=== PATIENT | female | born 1955 | race Caucasian/White ===

== ENCOUNTER 2017-05-29 08:52 | Emergency (ER) | payer BC ==
[2017-05-29] MEDS ORDERED: NS 0.9% 1000 ML* 1,000 ML IV ONE (09:19)
[2017-05-29] MEDS ORDERED: Ondansetron INJ* 2 MG/ML VIAL IV ONE (09:23)
--- NOTE | 2017-05-29 09:23 | ED ---
Influenza-Like Illness - HPI Summary HPI Summary: 61F presents with flu like symptoms for a week. She admits to subjective fevers , fatigue, feeling emotional for past week. She admits to nausea. She denies any vomiting or abdominal pain. She denies any headache, sinus congestion, ear pain, sore throat, cough, chest pain or SOB. She denies any diarrhea or constipation. She denies any dysuria, hematuria, flank pain, urgency, or frequency. She denies any neck stiffness. She states she has tingling in her fingers. She has been taking Tylenol without relief and today switched to ibuprofen due to LFTs being elevated primary told her she is taking too much Tylenol. Previous surgeries is hysterectomy. She denies any recent tick exposures. Her was sick with cold like symptoms but got better unlike her. She was seen by her primary and had lab work done with only abnormality was LFT so was told to stop liptor which stopped today. She was suppose to have lab work done by her primary today but decided because she was feeling worst to come here instead. only medical history is high cholesterol. had TSH checked three days ago and was normal. - History of Current Complaint Chief Complaint: EDFluSymptoms Time Seen by Provider: 05/29/17 09:00 - Allergy/Home Medications Allergies/Adverse Reactions: Allergies Allergy/AdvReac Type Severity Reaction Status Date / Time Clindamycin Allergy Severe Hives Verified 05/29/17 08:58 Penicillins [PCN] Allergy Severe Hives Verified 05/29/17 08:58 PMH/Surg Hx/FS Hx/Imm Hx Infectious Disease History: No Infectious Disease History: Denies: Traveled Outside the [place] in Last 30 Days - Social History Alcohol Use: None Substance Use Type: Reports: None Smoking Status (MU): Never Smoked Tobacco Review of Systems Positive: Fever Negative: Sore Throat, Ear Ache, Nasal Discharge Negative: Chest Pain Negative: Shortness Of Breath, Cough Positive: Nausea. Negative: Abdominal Pain, Vomiting, Diarrhea All Other Systems Reviewed And Are Negative: Yes Physical Exam Triage Information Reviewed: Yes Vital Signs On Initial Exam: Initial Vitals Temp Pulse Resp BP Pulse Ox 97.0 F 75 14 141/70 99 05/29/17 08:54 05/29/17 08:54 05/29/17 08:54 05/29/17 08:54 05/29/17 08:54 Vital Signs Reviewed: Yes Appearance: Positive: Well-Appearing Skin: Positive: Warm, Dry Head/Face: Positive: Normal Head/Face Inspection Eyes: Positive: Normal, EOMI, SAURAV, Conjunctiva Clear ENT: Positive: Normal ENT inspection, Pharynx normal, TMs normal Neck: Positive: Supple, Nontender, No Lymphadenopathy Respiratory/Lung Sounds: Positive: Clear to Auscultation, Breath Sounds Present Cardiovascular: Positive: Normal, RRR Abdomen Description: Positive: Nontender, Soft Bowel Sounds: Positive: Present Musculoskeletal: Positive: Normal Neurological: Positive: Normal Psychiatric: Positive: Other - emotional Diagnostics - Vital Signs Vital Signs Temp Pulse Resp BP Pulse Ox 05/29/17 08:54 97.0 F 75 14 141/70 99 - Laboratory Result Diagrams: 05/29/17 09:34 05/29/17 09:34 Lab Statement: Any lab studies that have been ordered have been reviewed, and results considered in the medical decision making process. Re-Evaluation - Re-Evaluation First Eval Re-Evaluation Time: 10:55 Change: Unchanged Comment: stays she has pain in muscles, states that nausea has returned. Flu Symptom Course/Dx - Course Course Of Treatment: 61F presents with flu like symptoms for a week. She admits to subjective fevers, fatigue, feeling emotional for past week. She admits to nausea. She denies any vomiting or abdominal pain. She denies any headache, sinus congestion, ear pain, sore throat, cough, chest pain or SOB. She denies any diarrhea or constipation. She denies any dysuria, hematuria, flank pain, urgency, or frequency. She denies any neck stiffness. She has been taking Tylenol without relief and today switched to ibuprofen due to LFTs being elevated primary told her she is taking too much Tylenol. Previous surgeries is hysterectomy. She denies any recent tick exposures. Her was sick with cold like symptoms but got better unlike her. She was seen by her primary and had lab work done with only abnormality was LFT so was told to stop liptor which stopped today. on exam is emotional. lungs CTA. abdomen soft nontender. vitals afebrile. labs: u/a shows bacteria+1, trace leuko and squamous cells so likely contaminate. labs wbc 9.5. lactic 1.9. flu neg. electroyltes normal. cpk normal. only abnormailty is ALT is elevated. crp 4.34. ordered lyme but will take couple days to get results. after reevaulation patient states is not feeling any better. spoke with dr byrd and states that everything is fine. dr cook say patient as courtesy and discussed with patient and wants to try some ativan. patient understands and agrees with plan. - Diagnoses Differential Diagnosis/HQI/PQRI: Positive: Influenza, Upper Respiratory Infection, Other - lyme Provider Diagnoses: Fatigue, Nausea Discharge - Discharge Plan Condition: Good Disposition: HOME Prescriptions: ALPRAZolam TAB* [Xanax TAB*] 0.25 mg PO Q8H PRN #12 tab MDD 3 PRN Reason: Anxiety Ondansetron ODT TAB* [Zofran 4 MG Odt TAB*] 4 mg PO Q6H PRN #20 tab.odt PRN Reason: Nausea Referrals: Carito Moss MD [Primary Care Provider] - Additional Instructions: Follow up with primary within 5 days Take zofran every 6 hours for nausea Take xanax every 8 hours for shakiness Return to ED if develop any new or worsening symptoms
[2017-05-29 09:54] LABS: Urine Bacteria 1+ (Absent); Urine Bilirubin Negative (Negative); Urine Glucose Negative (Negative); Urine Nitrite Negative (Negative)
[2017-05-29 09:57] LABS: Hematocrit 43 % (35-47); Hemoglobin 14.9 g/dl (12.0-16.0); Mean Corpuscular HGB Conc 35 g/dl (31-36); Mean Corpuscular Hemoglobin 31 pg (27-31); Mean Corpuscular Volume 90 fL (80-97); Mean Platelet Volume 8 um3 (7.4-10.4); Red Blood Count 4.76 10^6/ul (4.0-5.4); Red Cell Distribution Width 13 % (10.5-15); White Blood Count 9.5 10^3/ul (3.5-10.8)
[2017-05-29 09:59] VITALS: BP 114/71
[2017-05-29 10:09] LABS: Albumin 4.3 g/dL (3.2-5.2); BUN/Creatinine Ratio 14.3 (8-20); Calcium 9.8 mg/dL (8.6-10.3); EGFR African American 97.4 (>60); EGFR Non-African American 75.7 (>60); Globulin 3.5 g/dL (2-4); Magnesium 2.2 mg/dL (1.9-2.7); Potassium 3.9 mmol/L (3.5-5.0); Total Bilirubin 0.6 mg/dL (0.2-1.0); Total Protein 7.8 g/dL (6.4-8.9)
[2017-05-29 12:39] LABS: Urine Bacteria 1+ (Absent); Urine Bilirubin Negative (Negative); Urine Glucose Negative (Negative); Urine Nitrite Negative (Negative)
== END 2017-05-29 12:21 | disposition home or self-care (01) ==
LOC: ED 08:52
DX: R53.83 Other fatigue (principal); R11.0 Nausea
CPT/HCPCS: 36415; 80053; 81003; 81015; 82550; 83605; 83735; 85025; 86141; 86618; 87086; 87502; 96360; 96374; 99283; J2405

== ENCOUNTER 2017-10-09 11:56 | Emergency (ER) | payer BC ==
[2017-10-09] MEDS ORDERED: NS 0.9% 1000 ML* 1,000 ML IV ONE (12:50)
[2017-10-09 13:23] LABS: ABS Basophils 0 10^3/ul (0-0.2); ABS Eosinophils 0.3 10^3/ul (0-0.6); ABS Lymphocytes 0.7 10^3/ul (1.0-4.8); ABS Monocytes 0.3 10^3/ul (0-0.8); ABS Neutrophils 14.6 10^3/ul (1.5-7.7); ABS Nucleated RBC 0 10^3/ul; Eosinophil % 1.9 % (0-6); Hematocrit 46 % (35-47); Hemoglobin 15.6 g/dl (12.0-16.0); Lymphocyte % 4.7 % (25-47); Mean Corpuscular HGB Conc 34 g/dl (31-36); Mean Corpuscular Hemoglobin 31 pg (27-31); Mean Corpuscular Volume 91 fL (80-97); Mean Platelet Volume 8 um3 (7.4-10.4); Nucleated Red Blood Cells % 0.1; Platelet Count 324 10^3/ul (150-450); Red Blood Count 5.07 10^6/ul (4.0-5.4); Red Cell Distribution Width 13 % (10.5-15)
[2017-10-09 13:37] LABS: EGFR Non-African American 58.7 (>60)
[2017-10-09 14:13] LABS: Urine Appearance Clear; Urine Blood Negative (Negative); Urine Color Straw; Urine Ketones Trace (Negative); Urine Protein Negative (Negative); Urine Specific Gravity 1.002 (1.010-1.030); Urine Urobilinogen Negative (Negative)
[2017-10-09 15:36] VITALS: BP 110/59
--- NOTE | 2017-10-16 19:42 | ED ---
Toro Lorenz Rebecca, scribed for Kelvin Celis MD on 10/09/17 at 1241 . Allergic Reaction/Systemic - HPI Summary HPI Summary: Pt is a 61 y/o F who presents to ED c/o diffuse, erythematous hives. Sx began 2 days ago and have been gradually worsening since onset, initially localized and now diffuse throughout the body. Sx aggravated and alleviated by nothing, unchanged by Benadryl which she has been taking every 4 hours. Additionally c/o fatigue, mild throat swelling and fever (100.1 yesterday). Denies SOB, cyanosis , hair loss, CP and abd pain. Prior similar episode when she was taking Penicillin and Clindamycin, but less severely. Is not on any daily prescription medications besides Prednisone 30 mg 1x per day for the last 2 days. PMHx Lyme Disease last fall. - History of Current Complaint Chief Complaint: EDAllergicReaction Hx Obtained From: Patient Onset/Duration: Started days ago - 2 days, Still Present Timing: Constant Severity Currently: None Pain Intensity: 0 Pain Scale Used: 0-10 Numeric Location: Diffuse Character: Hives Aggravating Factor(s): Nothing Alleviating Factor(s): Nothing Associated Signs And Symptoms: Positive: Other: - fatigue, fever. Negative: Abdominal Pain, Chest Pain, Difficulty Breathing - Allergies/Home Medications Allergies/Adverse Reactions: Allergies Allergy/AdvReac Type Severity Reaction Status Date / Time MS Clindamycin [Clindamycin] Allergy Severe Hives Verified 05/29/17 08:58 MS Penicillins [PCN] Allergy Severe Hives Verified 05/29/17 08:58 PMH/Surg Hx/FS Hx/Imm Hx Previously Healthy: No - Lyme Disease Endocrine/Hematology History: Denies: Hx Diabetes Cardiovascular History: Denies: Hx Coronary Artery Disease, Hx Hypertension Infectious Disease History: No Infectious Disease History: Denies: Traveled Outside the [place] in Last 30 Days - Family History Known Family History: Positive: Cardiac Disease - Social History Alcohol Use: None Substance Use Type: Reports: None Smoking Status (MU): Never Smoked Tobacco Review of Systems Positive: Fever, Fatigue Positive: Other - Mild throat swelling Negative: Chest Pain Negative: Shortness Of Breath Negative: Abdominal Pain Positive: Rash - Diffuse erythematous hives, Other - NEGATIVE: cyanosis, hair loss All Other Systems Reviewed And Are Negative: Yes Physical Exam - Summary Physical Exam Summary: Appearance: Well-appearing, Well-nourished Skin: Warm, Dry, diffuse erythematous rash that blanches on pressure, with patchier areas on the arms, confluent on the torso, no vesicles, and no other distinguishing features Eyes: Normal, PERRLA, EOMI, sclera anicteric ENT: Normal Neck: Supple, nontender, no lymphadenopathy Respiratory: Clear to auscultation Cardiovascular: S1, S2, no murmur, no rub, no gallop Abdomen: Soft, nontender, no organomegaly Bowel sounds: Present Musculoskeletal: Normal, Strength/ROM Intact, no edema, pulses symmetrical Neurological: Normal, A&Ox3, cranial nerves II-XII WNL, follows commands, gait not tested, sensation intact to pin and light touch Psychiatric: affect normal, behavior appropriate, dressed appropriately, judgment intact Triage Information Reviewed: Yes Vital Signs On Initial Exam: Initial Vitals Temp Pulse Resp BP Pulse Ox 98.5 F 99 16 119/67 97 10/09/17 12:09 10/09/17 12:09 10/09/17 12:09 10/09/17 12:09 10/09/17 12:09 Vital Signs Reviewed: Yes Diagnostics - Vital Signs Vital Signs Temp Pulse Resp BP Pulse Ox 10/09/17 12:09 98.5 F 99 16 119/67 97 - Laboratory Result Diagrams: 10/09/17 13:11 10/09/17 13:11 Lab Statement: Any lab studies that have been ordered have been reviewed, and results considered in the medical decision making process. Re-Evaluation - Re-Evaluation First Eval Re-Evaluation Time: 15:01 Comment: Discussed all results and D/C plan with the pt. Allergic Reaction Course/Dx - Course Assessment/Plan: Pt is a 61 y/o F who presents to ED c/o diffuse, erythematous hives for 2 days ago, gradually worsening since onset. Sx unchanged by Benadryl which she has been taking every 4 hours. Additionally c/o fatigue, mild throat swelling and fever (100.1 yesterday). Denies SOB, cyanosis, hair loss, CP and abd pain. Prior similar episode when she was taking Penicillin and Clindamycin, but less severely. Is not on any daily prescription medications besides Prednisone 30 mg 1x per day for the last 2 days. PMHx Lyme Disease last fall. Bloodwork and UA were done and the pt received fluids in the ED course. Pt will be D/C to home with Dx of urticaria. Allergies noted. - Diagnoses Provider Diagnoses: Urticaria, possible vasculitis Discharge - Discharge Plan Condition: Fair Disposition: HOME Prescriptions: predniSONE TAB* [Deltasone TAB*] 10 mg PO DAILY 10 Days #100 tab Patient Education Materials: Urticaria (ED) Referrals: Carito Moss MD [Primary Care Provider] - Additional Instructions: see primary MD in the next 72 hours The documentation as recorded by the Toro fontaine Rebecca accurately reflects the service I personally performed and the decisions made by me, Kelvin Celis MD.
== END 2017-10-09 15:36 | disposition home or self-care (01) ==
LOC: ED 11:56
DX: L50.9 Urticaria, unspecified (principal); R53.83 Other fatigue; R50.9 Fever, unspecified; R21 Rash and other nonspecific skin eruption
CPT/HCPCS: 36415; 80053; 81003; 83605; 85025; 85652; 86038; 96360; 99283

== ENCOUNTER 2017-10-11 04:15 | Emergency (ER) | payer BC ==
[2017-10-11] MEDS ORDERED: NS 0.9% 1000 ML* 1,000 ML IV ONE (04:40)
[2017-10-11] MEDS ORDERED: methylPREDNISolone 125 MG* 2 ML VIAL IV ONE (04:41)
[2017-10-11] MEDS ORDERED: Famotidine IV* 10 MG/ML 2 ML (20 mg) IV SLOW PU ONE (04:42)
[2017-10-11] MEDS ORDERED: EPINEPHrine AMP 1 MG/ML IM ONE (04:42)
[2017-10-11] MEDS ORDERED: diPHENhydraMINE IV* 50 MG/ML 1 ml VIAL (BENADRYL) IV ONE (04:42)
[2017-10-11 05:32] VITALS: BP 103/63
[2017-10-11 05:44] LABS: ABS Basophils 0 10^3/ul (0-0.2); ABS Lymphocytes 1.7 10^3/ul (1.0-4.8); ABS Monocytes 0.7 10^3/ul (0-0.8); ABS Nucleated RBC 0 10^3/ul; Hematocrit 42 % (35-47); Hemoglobin 14.4 g/dl (12.0-16.0); Mean Corpuscular HGB Conc 34 g/dl (31-36); Mean Corpuscular Hemoglobin 31 pg (27-31); Mean Corpuscular Volume 91 fL (80-97); Mean Platelet Volume 8 um3 (7.4-10.4); Nucleated Red Blood Cells % 0.1; Platelet Count 329 10^3/ul (150-450); Red Blood Count 4.63 10^6/ul (4.0-5.4); Red Cell Distribution Width 13 % (10.5-15); White Blood Count 10.5 10^3/ul (3.5-10.8)
[2017-10-11 05:55] LABS: EGFR Non-African American 67.5 (>60)
[2017-10-11] MEDS ORDERED: Potassium Chlor TAB* 20 MEQ TAB.ER PO ONE (05:58)
--- NOTE | 2017-10-13 04:40 | ED ---
Kourtney Lorenz Thomas, scribed for Godwin Garcia MD on 10/11/17 at 0442 . Skin Complaint - HPI Summary HPI Summary: The patient presents with hives that have been constant for the last four days. The hives are pruritic. There is no known cause of the hives. The patient was evaluated by her PMD three days ago and she was a patient in the emergency department two days ago. The patient is on prednisone 50mg and 45mg. She complains of a headache. She denies mouth sores. - History of Current Complaint Chief Complaint: EDRashSkinAbscess Time Seen by Provider: 10/11/17 04:29 Stated Complaint: HIVES Hx Obtained From: Patient Onset/Duration: Started Days Ago - 3, Still Present Timing: Constant Onset Severity: Moderate Current Severity: Moderate Pain Intensity: 1 Pain Scale Used: 0-10 Numeric Skin Location: Generalized Character: Pruritus Aggravating Symptom(s): Nothing Alleviating Symptom(s): Nothing Associated Signs & Symptoms: Negative - fever, mouth sores - Allergy/Home Medications Allergies/Adverse Reactions: Allergies Allergy/AdvReac Type Severity Reaction Status Date / Time clindamycin Allergy Hives Verified 10/11/17 04:21 Penicillins Allergy Hives Verified 10/11/17 04:21 PMH/Surg Hx/FS Hx/Imm Hx Opthamlomology History: Denies: Hx Legally Blind EENT History: Denies: Hx Hearing Aid Infectious Disease History: No Infectious Disease History: Denies: Traveled Outside the [place] in Last 30 Days - Family History Known Family History: Positive: Other - Patient denies relevant FHx - Social History Alcohol Use: None Substance Use Type: Reports: None Smoking Status (MU): Never Smoked Tobacco Review of Systems Negative: Fever Negative: Other - mouth sores Positive: Other - Hives Positive: Headache All Other Systems Reviewed And Are Negative: Yes Physical Exam - Summary Physical Exam Summary: VITAL SIGNS: Reviewed. GENERAL: Patient is a well-developed and nourished female who is lying comfortable in the stretcher. Patient is not in any acute respiratory distress. HEAD AND FACE: No signs of trauma. No ecchymosis, hematomas or skull depressions. No sinus tenderness. EYES: PERRLA, EOMI x 2, No injected conjunctiva, no nystagmus. EARS: Hearing grossly intact. Ear canals and tympanic membranes are within normal limits. MOUTH: There is mild swelling of the uvula. She does not have any sores in her mouth. NECK: Supple, trachea is midline, no adenopathy, no JVD, no carotid bruit, no c- spine tenderness, neck with full ROM. CHEST: Symmetric, no tenderness at palpation LUNGS: Clear to auscultation bilaterally. No wheezing or crackles. CVS: Regular rate and rhythm, S1 and S2 present, no murmurs or gallops appreciated. ABDOMEN: Soft, non-tender. No signs of distention. No rebound no guarding, and no masses palpated. Bowel sounds are normal. EXTREMITIES: FROM in all major joints, no edema, no cyanosis or clubbing. NEURO: Alert and oriented x 3. No acute neurological deficits. Speech is normal and follows commands. SKIN: She has a diffuse maculopapular vesicular rash. Triage Information Reviewed: Yes Vital Signs On Initial Exam: Initial Vitals Temp Pulse Resp BP Pulse Ox 98.3 F 85 18 117/60 100 10/11/17 04:17 10/11/17 04:17 10/11/17 04:17 10/11/17 04:17 10/11/17 04:17 Vital Signs Reviewed: Yes Diagnostics - Vital Signs Vital Signs Temp Pulse Resp BP Pulse Ox 10/11/17 04:17 98.3 F 85 18 117/60 100 - Laboratory Result Diagrams: 10/11/17 05:15 10/11/17 05:15 Lab Statement: Any lab studies that have been ordered have been reviewed, and results considered in the medical decision making process. Course/Dx - Course Assessment/Plan: The patient feels better after treatment. The patient most likely is dealing with simple urticarial, and less likely urticarial vasculitis because she denies joint pain, nausea, pain, and systemic or associated. She only complains of a rash and itching. Bloodwork shows eosinophilia, which is consistent with an allergic reaction. The patient will be discharged home with prednisone 60 mg t for at least five days. She was instructed that if she feels better she should wean off of that as well. - Diagnoses Provider Diagnoses: Urticaria Discharge - Discharge Plan Condition: Stable Disposition: HOME Patient Education Materials: Urticaria (ED) Referrals: Carito Moss MD [Primary Care Provider] - 3 Days Additional Instructions: Follow up with your primary care physician in three days. Return to the emergency department for any new or worsening symptoms. The documentation as recorded by the Kourtney fontaine Thomas accurately reflects the service I personally performed and the decisions made by , Godwin Garcia MD.
== END 2017-10-11 06:58 | disposition home or self-care (01) ==
LOC: ED 04:15
DX: L50.9 Urticaria, unspecified (principal); Z88.0 Allergy status to penicillin
CPT/HCPCS: 36415; 80053; 85025; 86140; 96360; 96372; 96374; 96375; 99283; A9270-GY; J0171; J1200; J2930

== ENCOUNTER 2020-09-26 03:35 | Inpatient (IN) ==
[2020-09-26] MEDS ORDERED: Heparin 5000 UNITS/ML 1 mL VIAL IV ONE (03:53)
[2020-09-26] MEDS ORDERED: Ondansetron 4 mg VIAL 2 MG/ML 2 ml VIAL IV ONE ×2 (03:56→03:57)
[2020-09-26] MEDS ORDERED: Morphine 4 MG/ML VIAL (1 ml) IV ONE (04:03)
[2020-09-26 04:11] LABS: Activated Partial Thrombo Time 30.9 seconds (26.0-38.0); INR 0.9 (0.82-1.09)
[2020-09-26] MEDS ORDERED: Heparin 1,000 UNIT/ML 10 ml (10,000 UNITS) CATHLAB/DIALYSIS ONE (04:15)
[2020-09-26] MEDS ORDERED: VERAPAMIL 2.5 MG/ML 2 ML VIAL ** 5 mg/2 ml ONE (04:15)
[2020-09-26] MEDS ORDERED: Heparin 2 UNITS/ML 1000 mls 2,000 ML IV ONE (04:15)
[2020-09-26] MEDS ORDERED: nitroGLYCERIN DRIP 25,000 MCG/250 ML BTL ONE (04:16)
[2020-09-26] MEDS ORDERED: Lidocaine 1% VIAL 10 MG/ML VIAL ONE (04:16)
[2020-09-26] MEDS ORDERED: Iohexol 350 (CONTRAST) 200 ML MDV IV ONE (04:31)
[2020-09-26 04:36] LABS: Hematocrit 42 % (35-47); Hemoglobin 14.1 g/dL (12.0-16.0); Mean Corpuscular HGB Conc 34 g/dL (31-36); Mean Corpuscular Hemoglobin 31 pg (27-31); Mean Corpuscular Volume 92 fL (80-97); Platelet Count 360 10^3/uL (150-450); Red Blood Count 4.51 10^6 /uL (3.70-4.87); Red Cell Distribution Width 13 % (10-15)
[2020-09-26 04:37] LABS: Mean Platelet Volume 8.5 fL (7.4-10.4)
[2020-09-26] MEDS ORDERED: Midazolam 5 mg/5 ml VIAL 1 mg/ml 5 ml VIAL (5 mg) ONE (04:43)
[2020-09-26] MEDS ORDERED: fentaNYL 100 mcg/2 ml 50 MCG/ML VIAL ONE (04:43)
[2020-09-26 04:54] LABS: Albumin 4.2 g/dL (3.2-5.2); Albumin/Globulin Ratio 1.6 (1-3); BUN/Creatinine Ratio 18.7 (8-20); Calcium 9.8 mg/dL (8.6-10.3); EGFR African American 74.8 (>60); EGFR Non-African American 61.9 (>60); Globulin 2.7 g/dL (2-4); Potassium 2.8 mmol/L (3.5-5.0); Total Bilirubin 0.5 mg/dL (0.2-1.0); Total Protein 6.9 g/dL (6.4-8.9)
[2020-09-26 04:55] LABS: Myoglobin 25.2 ng/mL (14.3-65.8)
[2020-09-26] MEDS ORDERED: Bivalirudin 250 MG VIAL ONE (05:02)
[2020-09-26] MEDS ORDERED: DOPamine 800 MG/250 ML IVPREM 800 MG/250 ML ML CENTR ONE (05:16)
[2020-09-26] MEDS ORDERED: Furosemide 40 mg/4 ml IV VIAL ONE (05:31)
[2020-09-26] MEDS ORDERED: KCL 10 MEQ/50 ML IVPREMIX 10 MEQ/50 ML BAG ONE (05:39)
[2020-09-26] MEDS ORDERED: Ondansetron 4 mg VIAL 2 MG/ML 2 ml VIAL ONE (05:57)
[2020-09-26] MEDS ORDERED: NS 0.9% 1000 ml BAG 1,000 ML IV SCH (06:00)
[2020-09-26] MEDS ORDERED: Phenylephrine IV 10 MG/ML 1 ml VIAL ONE (06:18)
[2020-09-26] MEDS ORDERED: LORazepam 2 mg VIAL 1 ml IV PUSH PRN (06:27)
[2020-09-26] MEDS ORDERED: Lorazepam PYXIS KEY PRN (06:27)
[2020-09-26] MEDS ORDERED: Potassium Chlor 20 meq TAB.ER PO ONE (07:44)
[2020-09-26 08:25] LABS: Troponin I 28.05 ng/mL (<0.03)
[2020-09-26] MEDS: Enoxaparin 40 MG/0.4 ML SYR SUBCUT SCH (08:58)
[2020-09-26 09:04] LABS: Anion Gap 8 mmol/L (2-11); BUN/Creatinine Ratio 19.2 (8-20); Blood Urea Nitrogen 15 mg/dL (6-24); CO2 Carbon Dioxide 24 mmol/L (22-32); Calcium 8.6 mg/dL (8.6-10.3); Chloride 106 mmol/L (101-111); EGFR African American 89.4 (>60); EGFR Non-African American 73.9 (>60); Glucose 152 mg/dL (70-100); Potassium 3.5 mmol/L (3.5-5.0); Sodium 138 mmol/L (135-145)
[2020-09-26 13:28] LABS: Troponin I > 76.00 ng/mL (<0.03)
[2020-09-26 19:15] LABS: Troponin I > 76.00 ng/mL (<0.03)
[2020-09-27] MEDS ORDERED: Ondansetron 4 mg VIAL 2 MG/ML 2 ml VIAL IV PRN (00:34)
[2020-09-27 05:26] LABS: ABS Basophils 0.1 10^3/ul (0-0.2); ABS Eosinophils 0.1 10^3/ul (0-0.6); ABS Lymphocytes 2.3 10^3/ul (1.0-4.8); ABS Neutrophils 8.4 10^3/ul (1.5-7.7); Hematocrit 34 % (35-47); Hemoglobin 11.5 g/dL (12.0-16.0); Lymphocyte % 19.4 %; Mean Corpuscular HGB Conc 34 g/dL (31-36); Mean Corpuscular Hemoglobin 32 pg (27-31); Mean Corpuscular Volume 93 fL (80-97); Mean Platelet Volume 8.5 fL (7.4-10.4); Platelet Count 277 10^3/uL (150-450); Red Blood Count 3.62 10^6 /uL (3.70-4.87); Red Cell Distribution Width 13 % (10-15); White Blood Count 11.8 10^3/uL (3.5-10.8)
[2020-09-27 05:49] LABS: Albumin 3.6 g/dL (3.2-5.2); Albumin/Globulin Ratio 1.6 (1-3); Calcium 9.1 mg/dL (8.6-10.3); EGFR African American 83.2 (>60); EGFR Non-African American 68.8 (>60); Globulin 2.3 g/dL (2-4); HDL Cholesterol 34.4 mg/dL; Potassium 3.9 mmol/L (3.5-5.0); Total Bilirubin 0.7 mg/dL (0.2-1.0); Total Protein 5.9 g/dL (6.4-8.9)
[2020-09-27] MEDS: Enoxaparin 40 MG/0.4 ML SYR SUBCUT SCH (08:33)
[2020-09-28 07:12] LABS: Albumin 3.8 g/dL (3.2-5.2); Albumin/Globulin Ratio 1.5 (1-3); BUN/Creatinine Ratio 11.4 (8-20); Calcium 9.3 mg/dL (8.6-10.3); EGFR African American 88.1 (>60); EGFR Non-African American 72.8 (>60); Globulin 2.5 g/dL (2-4); Potassium 3.8 mmol/L (3.5-5.0); Total Bilirubin 0.7 mg/dL (0.2-1.0); Total Protein 6.3 g/dL (6.4-8.9)
[2020-09-28] MEDS: Enoxaparin 40 MG/0.4 ML SYR SUBCUT SCH (09:25)
[2020-09-28 09:42] VITALS: BP 103/65
== END 2020-09-28 10:34 | disposition home or self-care (01) | DRG 174 ==
LOC: ED 03:47 → CHICATH 04:31 → ICU 06:42 → MEDTELE 09-27 09:59